=== PATIENT | male | born 1965 | race Caucasian/White ===

== ENCOUNTER 2017-05-12 14:47 | Emergency (ER) | payer MEDICARE, MEDICAID ==
[2017-05-12 16:06] VITALS: BP 155/89
--- NOTE | 2017-05-12 17:41 | UC ---
Tatum Moreira Gabriel, scribed for Andres Cohn MD on 05/12/17 at 1640 . Respiratory Complaint HPI - HPI Summary HPI Summary: This patient is a 52 year old MF presenting to [facility] with a chief complaint of upper respiratory issues since a week ago. The patient rates the pain 4/10 in severity. Patient reports sore throat, productive cough, chills, and ear pain. Patient has a history of COPD - History of Current Complaint Chief Complaint: UCRespiratory Stated Complaint: COLD,ST,COUGH Time Seen by Provider: 05/12/17 16:29 Hx Obtained From: Patient Onset/Duration: Lasting Weeks - 1, Still Present Severity Currently: Moderate Pain Intensity: 4 Pain Scale Used: 0-10 Numeric Character: Cough: Productive - brown Associated Signs And Symptoms: Positive: Fever, Chills - Allergies/Home Medications Allergies/Adverse Reactions: Allergies Allergy/AdvReac Type Severity Reaction Status Date / Time No Known Allergies Allergy Verified 05/12/17 16:06 PMH/Surg Hx/FS Hx/Imm Hx Previously Healthy: No Cardiovascular History: Hypertension Respiratory History: COPD - Surgical History Surgical History: Yes Surgery Procedure, Year, and Place: 1990 LEFT KNEE ARTHROSCOPIC SURGERY, [facility] [place]- LEFT SHOULDER SURGERY 2013. 2009 CERVICAL FUSION C6/7, [facility] [place]. 01/2012 LEFT TOTAL HIP REPLACEMENT, [facility] [place]. 2010 OPEN VENTRAL HERNIA REPAIR, [facility] [place]. 2013 RIGHT TOTAL HIP REPLACEMENT, [facility] [place] - Family History Known Family History: Positive: Hypertension, Diabetes - Social History Alcohol Use: Occasionally Alcohol Amount: 4 BEERS/MONTH Substance Use Type: None, Prescribed Smoking Status (MU): Heavy Every Day Tobacco Smoker Type: Cigarettes Amount Used/How Often: 1/2 PDD FOR 30+ YRS Length of Time of Smoking/Using Tobacco: 30 + YEARS Have You Smoked in the Last Year: Yes - Immunization History Most Recent Influenza Vaccination: 2012 Most Recent Tetanus Shot: 2 YRS AGO Most Recent Pneumonia Vaccination: 6 YRS AGO Review of Systems Constitutional: Chills ENT: Sore Throat, Ear Ache Respiratory: Cough All Other Systems Reviewed And Are Negative: Yes Physical Exam Triage Information Reviewed: Yes Appearance: Well-Appearing, No Pain Distress Vital Signs: Initial Vital Signs Temp 96.4 F 05/12/17 16:03 Pulse 91 05/12/17 16:03 Resp 18 05/12/17 16:03 BP 155/89 05/12/17 16:03 Pulse Ox 97 05/12/17 16:03 Eye Exam: Normal - EOMI, PERRL ENT Exam: Normal ENT: Positive: Normal ENT inspection Neck exam: Normal Neck: Positive: Supple, Nontender Respiratory Exam: Other - Bilateral wheezes Cardiovascular Exam: Normal Cardiovascular: Positive: RRR, No Murmur Abdominal Exam: Normal Abdomen Description: Positive: Nontender, Soft Bowel Sounds: Positive: Present Musculoskeletal Exam: Normal Musculoskeletal: Positive: Strength Intact, ROM Intact Neurological Exam: Normal - sensory/motor intact, A&O x3 Psychological Exam: Normal - affect/mood appropriate Skin Exam: Normal - color reflects adequate perfusion, dry UC Diagnostic Evaluation - Laboratory O2 Sat by Pulse Oximetry: 97 Respiratory Course/Dx - Course Course Of Treatment: BP noted and advised to follow up with PCP - Differential Dx/Diagnosis Provider Diagnoses: BRONCHITIS. uncontrolled hypertension Discharge - Discharge Plan Condition: Stable Disposition: HOME Prescriptions: Azithromyxin BRIAN (NF) [Z-Brian (Zithromax) 250 mg tabs #6] 2 tab PO .TODAY, THEN 1 DAILY #6 tab Patient Education Materials: Acute Bronchitis (ED) Referrals: Kenney Chisholm MD [Primary Care Provider] - Additional Instructions: Your blood pressure was elevated during todays visit; please follow up with your primary care provider within a week for further evaluation. FOLLOW UP WITH YOUR DOCTOR. GET RECHECKED FOR ANY WORSENING OF YOUR CONDITION OR QUESTIONS OR CONCERNS. The documentation as recorded by the Tatum bradley Gabriel accurately reflects the service I personally performed and the decisions made by me, Andres Cohn MD.
== END 2017-05-12 16:44 | disposition home or self-care (01) ==
LOC: UCEAST 14:47
DX: J40 Bronchitis, not specified as acute or chronic (principal); I10 Essential (primary) hypertension; F17.210 Nicotine dependence, cigarettes, uncomplicated; J44.9 Chronic obstructive pulmonary disease, unspecified
CPT/HCPCS: 99212; G0463

== ENCOUNTER 2017-08-04 11:29 | Emergency (ER) | payer MEDICARE, MEDICAID ==
[2017-08-04 12:11] VITALS: BP 132/88
--- NOTE | 2017-08-04 12:58 | UC ---
Skin Complaint HPI - HPI Summary HPI Summary: Dry, itchy, scaly round and irregular skin patches on shoulders, bilat forearms , R calf, and R abd starting 1.5 weeks ago. Still itching, no known exposures. Has 2 dogs, no other animal exposure. - History of Current Complaint Chief Complaint: UCRash Time Seen by Provider: 08/04/17 12:28 Stated Complaint: RASH Hx Obtained From: Patient Onset/Duration: Gradual Onset, Lasting Days Timing: Constant Onset Severity: Mild Current Severity: Moderate Pain Intensity: 0 Location: Discrete Character: Pruritus Aggravating Factor(s): Touch Alleviating Factor(s): Nothing Associated Signs & Symptoms: Positive: Throat Tightening - Allergy/Home Medications Allergies/Adverse Reactions: Allergies Allergy/AdvReac Type Severity Reaction Status Date / Time No Known Allergies Allergy Verified 08/04/17 12:11 Home Medications: Home Medications Omeprazole CAP* [Prilosec CAP* 20 MG] 20 mg PO DAILY 08/04/17 [History Confirmed 08/04/17] fentaNYL [Duragesic] 50 mcg TD Q3D 08/04/17 [History Confirmed 08/04/17] Review of Systems Constitutional: Negative Skin: Rash Eyes: Negative ENT: Negative Respiratory: Negative Cardiovascular: Negative Gastrointestinal: Negative Genitourinary: Negative Motor: Negative Neurovascular: Negative Musculoskeletal: Negative Neurological: Negative Psychological: Negative Is Patient Immunocompromised?: No All Other Systems Reviewed And Are Negative: Yes PMH/Surg Hx/FS Hx/Imm Hx Cardiovascular History: Hypertension Respiratory History: COPD, Asthma - Surgical History Surgical History: Yes Surgery Procedure, Year, and Place: 1990 LEFT KNEE ARTHROSCOPIC SURGERY, [facility] [place]- LEFT SHOULDER SURGERY 2013. 2009 CERVICAL FUSION C6/7, [facility] [place]. 01/2012 LEFT TOTAL HIP REPLACEMENT, [facility] [place]. 2010 OPEN VENTRAL HERNIA REPAIR, [facility] [place]. 2013 RIGHT TOTAL HIP REPLACEMENT, [facility] [place] - Family History Known Family History: Positive: Hypertension, Diabetes - Social History Alcohol Use: Occasionally Alcohol Amount: 4 BEERS/MONTH Substance Use Type: None Smoking Status (MU): Heavy Every Day Tobacco Smoker Type: Cigarettes Amount Used/How Often: 1 PDD Length of Time of Smoking/Using Tobacco: 30 + YEARS Have You Smoked in the Last Year: Yes Cessation Counseling: Patient Advised to Stop - Immunization History Most Recent Influenza Vaccination: 2012 Most Recent Tetanus Shot: 2 YRS AGO Most Recent Pneumonia Vaccination: 6 YRS AGO Physical Exam Triage Information Reviewed: Yes Appearance: Well-Appearing, No Pain Distress, Well-Nourished Vital Signs: Initial Vital Signs Temp 98.0 F 08/04/17 12:07 Pulse 86 08/04/17 12:07 Resp 16 08/04/17 12:07 BP 132/88 08/04/17 12:07 Pulse Ox 98 08/04/17 12:07 Vital Signs Reviewed: Yes Eye Exam: Normal Eyes: Positive: Conjunctiva Clear ENT Exam: Normal ENT: Positive: Normal ENT inspection, Hearing grossly normal, Pharynx normal, TMs normal. Negative: TM bulging, TM dull, TM red Dental Exam: Other - dentures Neck exam: Normal Neck: Positive: Supple Respiratory: Positive: No respiratory distress, Decreased breath sounds. Negative: Crackles, Rhonchi Cardiovascular Exam: Normal Cardiovascular: Positive: RRR, No Murmur Musculoskeletal Exam: Normal Neurological Exam: Normal Neurological: Positive: Alert Psychological Exam: Normal Skin Exam: Other - 1-5cm irreg, round patches of skin with raised edges and central peeling/scaling on bilat shoulders, forearms, r abd, r calf. Course/Dx - Course Course Of Treatment: Though progression of symptoms seems fast for tinea, features on exam are suggestive of this, as is pt's itching. Encouraged f/u with PCP in 2 weeks to recheck. - Diagnoses Provider Diagnoses: tinea corporis Discharge - Discharge Plan Condition: Stable Disposition: HOME Prescriptions: Fluconazole [Diflucan 150 MG (NF)] 150 mg PO SEE INSTRUCTIONS #4 tab Patient Education Materials: Tinea Corporis (ED) Referrals: Kenney Chisholm MD [Primary Care Provider] - 2 Weeks Additional Instructions: Please see Dr. Chisholm in 2 weeks for re-evaluation. If this is fungal, it should be much improved by then. If not, you may need to see a second facing baster.
== END 2017-08-04 12:50 | disposition home or self-care (01) ==
LOC: UCEAST 11:29
DX: B35.4 Tinea corporis (principal); I10 Essential (primary) hypertension; J44.9 Chronic obstructive pulmonary disease, unspecified; F17.210 Nicotine dependence, cigarettes, uncomplicated
CPT/HCPCS: 99212; G0463

== ENCOUNTER 2019-04-21 10:19 | Emergency (ER) | payer MEDICARE, MEDICAID ==
--- NOTE | 2019-04-21 10:35 | ED ---
Upper Extremity Pain - HPI Summary HPI Summary: 54 year old M presenting to [facility] accompanied by family member complains of right sided neck pain, right collar bone pain, and right shoulder pain rated 9/ 10 in severity after slipping on ice last night and falling onto his right shoulder. No head trauma, LOC, chest pain, shortness of breath, nausea, abdominal pain, hematuria, pain in lower extremities. Patient states he is able to ambulate. Patient states he took hydrocodone 325 mg last night with no relief. Symptoms aggravated by range of motion. Symptoms alleviated by nothing. Patient states he currently has bronchitis. Surgical hx: plate in neck from discectomy done by Dr. Mcdermott and right rotator cuff surgery done by Dr. Machado. - History of Current Complaint Chief Complaint: EDNeckComplaint Stated Complaint: FALL- SHOULDER AND NECK INJURY PER PT Time Seen by Provider: 04/21/19 10:27 Hx Obtained From: Patient Mechanism Of Injury: Other - after slipping on ice last night and falling onto his right shoulder Onset/Duration: Started Hours Ago, Still Present Timing: Constant, Lasting Hours Severity Currently: Severe - 9/10 Pain Location: Other: - right sided neck, right collar bone , and right shoulder Aggravating Factor(s): Other - range of motion Alleviating Factor(s): Nothing Associated Signs & Symptoms: Positive: Negative - head trauma, LOC, chest pain, shortness of breath, nausea, abdominal pain, hematuria, pain in lower extremities - Allergies/Home Medications Allergies/Adverse Reactions: Allergies Allergy/AdvReac Type Severity Reaction Status Date / Time No Known Allergies Allergy Verified 04/21/19 10:23 Home Medications: Home Medications Albuterol 2.5MG/3ML (0.083%)* [Ventolin 2.5 MG/3 ML NEB.GABRIELA*] 2.5 mg INH QID PRN 04/21/19 [History Confirmed 04/21/19] Budesonide/Formote 80/4.5(NF) [Symbicort 80/4.5 (NF)] 1 puff INH BID 04/21/19 [ History Confirmed 04/21/19] Ipratropium 0.5MG/2.5ML NEB* [Atrovent 0.5 MG NEB.GABRIELA*] 0.5 mg INH BID PRN 04/21 [History Confirmed 04/21/19] Sildenafil (NF) [Viagra (NF)] 50 - 100 mg PO ONCE PRN 04/21/19 [History Confirmed 04/21/19] Tapentadol ER (NF) [Nucynta ER (NF)] 100 mg PO BID 04/21/19 [History Confirmed 04/21/19] guaiFENesin ER TAB [Mucinex*] 600 mg PO BID 04/21/19 [History Confirmed 04/21/19 ] hydrOXYzine HCL TAB* [Atarax TAB 50 MG *] 50 mg PO Q6HR 04/21/19 [History Confirmed 04/21/19] PMH/Surg Hx/FS Hx/Imm Hx Endocrine/Hematology History: Denies: Hx Diabetes, Hx Thyroid Disease Cardiovascular History: Reports: Hx Hypertension Denies: Hx Pacemaker/ICD Respiratory History: Reports: Hx Asthma, Hx Chronic Bronchitis, Hx Chronic Obstructive Pulmonary Disease (COPD), Other Respiratory Problems/Disorders - OCCASIONAL WHEEZING R/T COPD GI History: Reports: Hx Gastroesophageal Reflux Disease, Other GI Disorders - HEARTBURN ON PRILOSEC Denies: Hx Ulcer History: Denies: Hx Renal Disease Musculoskeletal History: Reports: Hx Arthritis, Hx Back Problems - Chronic Neck Pain, Hx Bursitis - L HIP, Other Musculoskeletal History - pain from groin to knee lt leg Sensory History: Reports: Hx Contacts or Glasses - LOSS GLASSES Denies: Hx Hearing Aid Opthamlomology History: Reports: Hx Contacts or Glasses - LOSS GLASSES Neurological History: Reports: Hx Spinal Cord Injury Psychiatric History: Reports: Hx Anxiety Denies: Hx Attention Deficit Hyperactivity Disorder, Hx Eating Disorder, Hx Depression, Hx Panic Disorder, Hx Post Traumatic Stress Disorder, Hx Inpatient Treatment, Hx Community Mental Health Tx, Hx Schizophrenia, Hx Bipolar Disorder , Hx Suicide Attempt, Hx of Violent Episodes Against Others, Hx Substance Abuse , Other Psychiatric Issues/Disorders - Surgical History Surgery Procedure, Year, and Place: 1990 LEFT KNEE ARTHROSCOPIC SURGERY, [facility] [place] LEFT SHOULDER SURGERY 2013. 2009 CERVICAL FUSION C6/7, [facility] [place]. 01/2012 LEFT TOTAL HIP REPLACEMENT, [facility] [place]. 2010 OPEN VENTRAL HERNIA REPAIR, [facility] [place]. 2013 RIGHT TOTAL HIP REPLACEMENT, [facility] [place] Hx Anesthesia Reactions: No Infectious Disease History: No Infectious Disease History: Reports: Hx Shingles Denies: Hx Clostridium Difficile, Hx Hepatitis, Hx Human Immunodeficiency Virus (HIV), Hx of Known/Suspected MRSA, Hx Tuberculosis, Hx Known/Suspected VRE , Hx Known/Suspected VRSA, History Other Infectious Disease, Traveled Outside the [place] in Last 30 Days - Family History Known Family History: Positive: Hypertension, Diabetes - Social History Alcohol Use: Rare Alcohol Amount: 4 BEERS/MONTH Substance Use Type: Reports: None Hx Tobacco Use: Yes Smoking Status (MU): Current Every Day Smoker Type: Cigarettes Amount Used/How Often: 1 PDD Length of Time of Smoking/Using Tobacco: 30 + YEARS Have You Smoked in the Last Year: Yes Review of Systems Negative: Chest Pain Negative: Shortness Of Breath Negative: Abdominal Pain, Nausea Negative: hematuria Musculoskeletal: Negative - pain in lower extremities Positive: Other - right sided neck pain, right collar bone pain, and right shoulder pain Neurological: Negative - LOC All Other Systems Reviewed And Are Negative: Yes Physical Exam - Summary Physical Exam Summary: Constitutional: Well-developed, Well-nourished, Alert. (-) Distressed Skin: Warm, Dry HENT: Normocephalic; Atraumatic Eyes: Conjunctiva normal Neck: C-spine tenderness around C3, Right lateral neck muscles are tender Cardio: Rhythm regular, rate normal, Heart sounds normal; Intact distal pulses; The pedal pulses are 2+ and symmetric. Radial pulses are 2+ and symmetric. (-) Murmur Pulmonary/Chest wall: Effort normal. (-) Respiratory distress, (-) Wheezes, (-) Rales Abd: Soft, (-) tenderness, (-) Distension, (-) Guarding, (-) Rebound Musculoskeletal: There is tenderness in the superior trapezius, right collarbone , and at the superior lateral aspect of the right shoulder. He has pain with ROM of with the right arm. Neurovascular in tact, good strength, good radial pulses. Lymph: (-) Cervical adenopathy Neuro: Alert, Oriented x3 Psych: Mood and affect Normal Triage Information Reviewed: Yes Vital Signs On Initial Exam: Initial Vitals Temp Pulse Resp BP Pulse Ox 98.0 F 106 19 186/110 95 04/21/19 10:20 04/21/19 10:20 04/21/19 10:20 04/21/19 10:20 04/21/19 10:20 Vital Signs Reviewed: Yes Procedures - Sedation Patient Received Moderate/Deep Sedation with Procedure: No Diagnostics - Vital Signs Vital Signs Temp Pulse Resp BP Pulse Ox 11/13/19 10:20 98.0 F 106 19 186/110 95 - Laboratory Lab Statement: Any lab studies that have been ordered have been reviewed, and results considered in the medical decision making process. - Radiology Right clavicle x-ray Radiology Interpretation Completed By: Radiologist Summary of Radiographic Findings: Negative for RIGHT clavicle fracture or articular malalignment. ED physician has reviewed this report. Right shoulder x-ray Radiology Interpretation Completed By: Radiologist Summary of Radiographic Findings: 1. SOFT TISSUE CALCIFICATION SUGGESTIVE OF A CALCIFIC TENDINOPATHY. 2. OSTEOARTHRITIS. 3. NO ACUTE OSSEOUS INJURY. IF SYMPTOMS PERSIST, RECOMMEND REPEAT IMAGING. ED physician has reviewed this report. - CT Cervical spine CT Interpretation Completed By: Radiologist Summary of CT Findings: DEGENERATIVE DISC DISEASE AND OSTEOARTHRITIS STATUS POST CERVICAL FUSION. NO ACUTE OSSEOUS INJURY TO THE CERVICAL SPINE. ED physician has reviewed this report. Course/Dx - Course Course Of Treatment: 54 year old M complains of right sided neck pain, right collar bone pain, and right shoulder pain which are aggravated by ROM after slipping on ice last night and falling onto his right shoulder. No head trauma, LOC. Physical exam findings: C-spine tenderness around C3, Right lateral neck muscles are tender. There is tenderness in the superior trapezius, right collarbone, and at the superior lateral aspect of the right shoulder. He has pain with ROM of with the right arm. Neurovascular in tact, good strength, good radial pulses. Right clavicle x-ray shows, per radiologist: Negative for RIGHT clavicle fracture or articular malalignment. Right shoulder x-ray shows, per radiologist: 1. SOFT TISSUE CALCIFICATION SUGGESTIVE OF A CALCIFIC TENDINOPATHY. 2. OSTEOARTHRITIS. 3. NO ACUTE OSSEOUS INJURY. IF SYMPTOMS PERSIST, RECOMMEND REPEAT IMAGING. CT Cervical spine shows, per radiologist: DEGENERATIVE DISC DISEASE AND OSTEOARTHRITIS STATUS POST CERVICAL FUSION. NO ACUTE OSSEOUS INJURY TO THE CERVICAL SPINE. In the ED course, the patient was given Flexeril 10 mg PO, Motrin 600 mg PO, Percocet 325 mg, and a lidocaine patch. Final dx muscle strain and contusion. Patient will be discharged home with prescription for lidocaine patch and follow up from Dr. Real in 1 day. Patient was instructed to return to Emergency Department for new or worsening symptoms. Patient understands and is agreeable to this plan. - Diagnoses Provider Diagnoses: Muscle strain, Contusion Discharge ED - Sign-Out/Discharge Documenting (check all that apply): Patient Departure - Discharge - Discharge Plan Condition: Stable Disposition: HOME Prescriptions: Lidocaine PATCH 5%* [Lidoderm 5% Patch*] 1 patch TRANSDERM DAILY 10 Days #10 patch Patient Education Materials: Muscle Strain (ED), Contusion in Adults (ED) Print Language: ANGOLAN Referrals: Henna Real MD [Medical Doctor] - - Billing Disposition and Condition Condition: STABLE Disposition: Home - Attestation Statements Document Initiated by Scribe: Yes Documenting Scribe: Lynne Huff Provider For Whom Billie is Documenting (Include Credential): Yadira Mireles MD Scribe Attestation: ILynne, scribed for Yadira Connell MD on 04/21/19 at 1435. Scribe Documentation Reviewed: Yes Provider Attestation: The documentation as recorded by the scribeLynne accurately reflects the service I personally performed and the decisions made by me, Yadira Connell MD Status of Scribe Document: Viewed
[2019-04-21] MEDS ORDERED: Ibuprofen TAB* 600 MG PO ONE (11:28)
[2019-04-21] MEDS ORDERED: Cyclobenzaprine TAB* 10 MG PO ONE (11:28)
[2019-04-21] MEDS ORDERED: Lidocaine PATCH 5%* 1 PATCH TRANSDERM ONE (11:47)
[2019-04-21] MEDS ORDERED: oxyCODONE/Acetamin 5/325 MG* TAB PO ONE (11:49)
[2019-04-21 12:53] VITALS: BP 132/96
[2019-04-21] MEDS ORDERED: Lidocaine Patch REMOVE* 1 NOTE MISC SCH (21:00)
== END 2019-04-21 12:10 | disposition home or self-care (01) ==
LOC: ED 10:19
DX: S46.911A Strain of unspecified muscle, fascia and tendon at shoulder and upper arm level, right arm, initial encounter (principal); S06.0X0A Concussion without loss of consciousness, initial encounter; W00.0XXA Fall on same level due to ice and snow, initial encounter; Y92.9 Unspecified place or not applicable; M19.011 Primary osteoarthritis, right shoulder; M50.30 Other cervical disc degeneration, unspecified cervical region; I10 Essential (primary) hypertension; J44.9 Chronic obstructive pulmonary disease, unspecified; K21.9 Gastro-esophageal reflux disease without esophagitis; Z96.643 Presence of artificial hip joint, bilateral; Z98.1 Arthrodesis status; F17.210 Nicotine dependence, cigarettes, uncomplicated
CPT/HCPCS: 72125; 99282; A9270-GY